=== PATIENT | female | born 1955 | race Caucasian/White ===

== ENCOUNTER 2019-08-07 15:17 | Emergency (ER) | payer MEDICARE, OTHER ==
[~2019-08-07] VITALS: Ht 154.9 cm; Wt 49.8 kg
--- NOTE | 2019-08-07 16:45 | NUR ---
PT A&OX4, RESP EVEN & UNLABORED, JAW CLENCHED "I'VE GOT TMJ", SPEECH RECOGNIZABLE, SKIN WNL. STATES SHE FELL OFF A STOOL LAST NOC, LANDED ON [place] FLOOR ON LT SHOULDER. C/O PAIN TO LT SHOULDER RADIATING TO ELBOW. LIMITED ROM LT SHOULDER. FULL ROM LT ELBOW, RADIAL PULSE STRONG & REG, CAP REFILL < 3 SEC. IBUPROFEN TAKEN AT HOME (LAST DOSE 0700). PT RT HANDED. DAUGHTER IN ROOM. PT WAS SEEN AT [facility]LE[facility]; XR DONE & TORDAL GIVEN AT URGENT CARE.
[2019-08-07] MEDS ORDERED: DULO60CA7 PO (16:55)
[2019-08-07] MEDS ORDERED: ATOR20TA PO (16:55)
[2019-08-07] MEDS ORDERED: DIAZ5TAB4 PO (16:55)
[2019-08-07] MEDS ORDERED: ARIP30TA4 PO (16:55)
[2019-08-07] MEDS ORDERED: TRAZ50TA66 PO (16:55)
--- NOTE | 2019-08-07 17:31 | NUR ---
PT REPORT TO BREAK RN: LUANA. PT CARE TRANSFERRED.
--- NOTE | 2019-08-07 17:32 | NUR ---
Break RN: pt to be discharged
[2019-08-07 17:42] VITALS: BP 100/55
== END 2019-08-07 17:44 | disposition home or self-care (01) ==
LOC: ED 17:38
DX: S42.202A Unspecified fracture of upper end of left humerus, initial encounter for closed fracture (principal); I11.0 Hypertensive heart disease with heart failure; I50.9 Heart failure, unspecified; E11.9 Type 2 diabetes mellitus without complications; J44.9 Chronic obstructive pulmonary disease, unspecified; W19.XXXA Unspecified fall, initial encounter; Y93.89 Activity, other specified; Y92.099 Unspecified place in other non-institutional residence as the place of occurrence of the external cause; Y99.8 Other external cause status
CPT/HCPCS: 99281